=== PATIENT | male | born 1975 | race African-American/Black ===

== ENCOUNTER 2016-11-04 12:16 | Emergency (ER) | payer SELFPAY ==
[~2016-11-04] VITALS: Ht 167.6 cm; Wt 60.0 kg
[~2016-11-04 12:16] MED LIST: DICL75 PO; Z.0.NO CURRENT MEDS
[2016-11-04 12:21] VITALS: BP 138/78; PULSE 59; RESP 16; TEMP 98.1; O2SAT 98
--- NOTE | 2016-11-04 12:38 | PD ---
HPI Chief Complaint: Pain: Acute or Chronic Time Seen by Provider: 12:35 Travel History International Travel<30 days: No Contact w/Intl Traveler<30days: No Traveled to known affect area: No History of Present Illness HPI 41-year-old male presents to the emergency Department with complaint of right shoulder pain 1 week. Denies injury, strain. Says there is a shocking pain that occasionally radiates from his shoulder to his fingers. Pain is worse with movement and palpation. Denies fever, chills, nausea, vomiting. Denies paresthesias, loss of sensation, decreased range of motion, decreased strength to the affected extremity. Has taken Tylenol with no relief of pain. Has not had any other treatments to alleviate his symptoms. No known relieving factors. Denies allergies. No other modifying factors or associated signs and symptoms. PFSH Past Medical History Asthma: Yes Blood Disorders: No Anxiety: Yes Cancer: No Cardiovascular Problems: No Chemotherapy: No Diminished Hearing: No Endocrine: No Gastrointestinal Disorders: No GERD: Yes Genitourinary: No Immune Disorder: No Musculoskeletal: No Neurologic: No Psychiatric: No Reproductive: No Respiratory: Yes (BRONCHITIS) Radiation Therapy: No Ulcer: Yes (GASTRIC) Past Surgical History AICD: No Arteriovenous Shunt: No Eye Surgery: Yes Insulin Pump: No Joint Replacement: No Pacemaker: No Other Surgery: No Social History Alcohol Use: Yes (OCCASIONALLY) Tobacco Use: Yes (1 PPD) Substance Use: Yes (MARIJUANA ) Allergies-Medications (Allergen,Severity, Reaction): Coded Allergies: No Known Allergies (Verified , 11/04/16) Reported Meds & Prescriptions Reported Meds & Active Scripts Active Robaxin (Methocarbamol) 500 Mg Tab 500 Mg PO QID PRN Ibuprofen 800 Mg Tab 800 Mg PO Q6HR PRN Medrol Dosepak (Methylprednisolone) 4 Mg Dspk 4 Mg PO DIRECTED Per Pharmacist direction Review of Systems Except as stated in HPI: all other systems reviewed are Neg Physical Exam Narrative GENERAL: Well-nourished, well-developed male patient, in no acute distress; afebrile SKIN: Warm and dry. HEAD: Atraumatic. Normocephalic. EYES: Pupils equal and round. No scleral icterus. No injection or drainage. ENT: Mucosa pink and moist. Airway patent. NECK: Supple. Trachea midline. Moving freely. No midline point tenderness on palpation of the cervical spine or reproducible tenderness over the trapezius muscle. CARDIOVASCULAR: Regular rate. RESPIRATORY: No accessory muscle use. GASTROINTESTINAL: Flat. MUSCULOSKELETAL: Right shoulder with full range of motion and greater than 45 abduction; tenderness at the acromioclavicular joint; no obvious deformity; without erythema, edema; shoulders equal. Right upper extremity supple and non- tense with 2+ radial pulses and sensory intact without erythema or edema. 5/5 strength. Internet Marketing Strategist strength equal. No obvious deformities. No clubbing. No cyanosis. No edema. NEUROLOGICAL: Awake and alert. Oriented 3. No obvious cranial nerve deficits. Motor grossly within normal limits. Normal speech. PSYCHIATRIC: Appropriate mood and affect; insight and judgment normal. Data Data Last Documented VS Vital Signs Date Time Temp Pulse Resp B/P Pulse Ox O2 Delivery O2 Flow Rate FiO2 11/04/16 12:21 98.1 59 16 138/78 98 Orders Sling Cradle Arm (11/04/16 ) Ibuprofen (Motrin) (11/04/16 12:45) MDM Medical Decision Making Medical Screen Exam Complete: Yes Emergency Medical Condition: Yes Medical Record Reviewed: Yes Differential Diagnosis Rotator cuff tear, arthritis, cervical radiculopathy, nerve impingement Narrative Course 41-year-old male with right shoulder pain 1 week. No injury or strain. Right shoulder is with full range of motion; joint is stable. Right upper extremity supple and non-tense with 2+ radial pulse and sensory intact and without erythema or edema. I do not suspect joint separation, dislocation, fracture and feel that imaging is not necessary at this time. Ibuprofen administered in the ER. Arm sling provided for support. Medrol Dosepak, ibuprofen, Robaxin prescribed for home. Instructed patient to follow-up with orthopedics as needed. Patient is medically cleared and stable for discharge. Discussed reasons to return to the emergency department. Instructed patient to follow up with primary care provider. Patient agrees with treatment plan. The patients vital signs are stable and the patient is stable for outpatient follow-up and treatment. Patient discharged home, stable and in no acute distress. Diagnosis Primary Impression: Shoulder pain, right Qualified Code: M25.511 - Right shoulder pain, unspecified chronicity Referrals: Orthopedist Primary Care Physician Patient Instructions: General Instructions, Shoulder Pain (ED) Additional Instructions: Tylenol or ibuprofen as needed and as directed to reduce pain and inflammation Rest, ice, and compress extremity to decrease pain and inflammation Arm sling for support as needed; only use arm sling occasionally; continue to move your arm to avoid frozen shoulder Avoid aggravating activity; increase activity as tolerated Follow-up with primary care provider Follow-up with orthopedics as needed Return to the emergency department immediately with worsening symptoms Med/Other Pt SpecificInfo: Prescription(s) given Scripts Methocarbamol (Robaxin)500 Mg [id number] Mg PO QID PRN (MUSCLE SPASM) #30 TAB Ref 0 Prov:Clarisa Luke 11/04/16 Ibuprofen 800 Mg [id number] Mg PO Q6HR PRN (PAIN) #30 TAB Ref 0 Prov:Clarisa Luke 11/04/16 Methylprednisolone Dosepak (Medrol Dosepak)4 Mg Dspk4 Mg PO DIRECTED #1 DSPK Ref 0 Per Pharmacist direction Prov:Clarisa Luke 11/04/16 Disposition: 01 DISCHARGE HOME Condition: Stable Clarisa Luke Nov 04, 2016 12:38
[2016-11-04] MEDS ORDERED: ROBA500T PO (12:42)
[2016-11-04] MEDS ORDERED: IBUP800T23 PO (12:42)
[2016-11-04] MEDS ORDERED: MEDR4PAK PO (12:42)
[2016-11-04] MEDS ORDERED: IBUPROFEN 800 MG TAB PO ONE (12:45)
== END 2016-11-04 12:55 | disposition home or self-care (01) ==
LOC: NEPB 12:16
DX: M25.511 Pain in right shoulder (principal)
CPT/HCPCS: 99283

== ENCOUNTER 2017-04-18 18:51 | Emergency (ER) | payer SELFPAY ==
[~2017-04-18] VITALS: Ht 167.6 cm; Wt 61.8 kg
[~2017-04-18 18:51] MED LIST changes: -DICL75 PO; +IBUP800T23 PO; +MEDR4PAK PO; +ROBA500T PO; -Z.0.NO CURRENT MEDS
[2017-04-18 18:53] VITALS: BP 148/85; PULSE 84; RESP 17; TEMP 98.2; O2SAT 99
[2017-04-18] MEDS ORDERED: VENTAER INH (19:20)
[2017-04-18 21:25] LABS: BLOOD, URINE NEG (NEG); COMMENT (UR) CULT NOT INDICATED; CULTURE IF INDICATED CULT NOT INDICATED; GLUCOSE,URINE NEG (NEG); KETONE, URINE NEG (NEG); MUCUS URINE FEW /lpf (OCC); NITRITE,URINE NEG (NEG); URINE COLOR YELLOW (YELLW/STRAW)
--- NOTE | 2017-04-18 22:46 | PD ---
HPI Chief Complaint: Complaint Time Seen by Provider: 20:39 Travel History International Travel<30 days: No Contact w/Intl Traveler<30days: No Traveled to known affect area: No History of Present Illness HPI This is a 42-year-old male about 1 day of swelling about the foreskin of the penis. He reports rough intercourse preceding the swelling. Timing constant. He has no pain with urination or difficulty urinating. No abnormal discharge. No testicular pain. The swelling about the penis itself is not painful for him to the patient. PFSH Past Medical History Asthma: Yes Blood Disorders: No Anxiety: Yes Cancer: No Cardiovascular Problems: No Chemotherapy: No Diminished Hearing: No Endocrine: No Gastrointestinal Disorders: No GERD: Yes Genitourinary: No Immune Disorder: No Musculoskeletal: No Neurologic: No Psychiatric: No Reproductive: No Respiratory: Yes (BRONCHITIS) Radiation Therapy: No Ulcer: Yes (GASTRIC) Tetanus Vaccination: Unknown Past Surgical History AICD: No Arteriovenous Shunt: No Eye Surgery: Yes Insulin Pump: No Joint Replacement: No Pacemaker: No Other Surgery: No Social History Alcohol Use: Yes (OCCASIONALLY) Tobacco Use: Yes (1 PPD) Substance Use: Yes (MARIJUANA IN PAST ) Allergies-Medications (Allergen,Severity, Reaction): Coded Allergies: No Known Allergies (Verified , 04/18/17) Reported Meds & Prescriptions Reported Meds & Active Scripts Active Reported Ventolin Hfa 18 GM Inh (Albuterol Sulfate) 90 Mcg/Act Aer 2 Puff INH Q4H PRN Review of Systems Except as stated in HPI: all other systems reviewed are Neg Physical Exam Narrative GENERAL: 42 yo M pleasant well-nourished without PENIS: There is an edematous ring just proximal to the levine of the glands about 1 cm or so in length with erythema however no tenderness or discharge. The glans is nontender. Testicular exam is unremarkable SKIN: Focused skin assessment warm/dry. HEAD: Atraumatic. Normocephalic. EYES: Pupils equal and round. No scleral icterus. No injection or drainage. ENT: No nasal bleeding or discharge. Mucous membranes pink and moist. NECK: Trachea midline. No JVD. Data Data Last Documented VS Vital Signs Date Time Temp Pulse Resp B/P Pulse Ox O2 Delivery O2 Flow Rate FiO2 04/18/17 18:53 98.2 84 17 148/85 99 Vital signs reviewed Orders Urinalysis - C+S If Indicated (6/20/17 20:54) Gc And Chlamydia Pcr (04/18/17 20:54) Labs Laboratory Tests Test 04/18/17 21:10 Urine Color YELLOW Urine Turbidity CLEAR Urine pH 6.0 Urine Specific [place] 1.027 Urine Protein NEG mg/dL Urine Glucose (UA) NEG mg/dL Urine Ketones NEG mg/dL Urine Occult Blood NEG Urine Nitrite NEG Urine Bilirubin NEG Urine Urobilinogen LESS THAN 2.0 MG/DL Urine Leukocyte Esterase NEG Urine RBC 2 /hpf Urine WBC 1 /hpf Urine Mucus FEW /lpf Microscopic Urinalysis Comment CULT NOT INDICATED MDM Medical Decision Making Medical Screen Exam Complete: Yes Emergency Medical Condition: Yes Medical Record Reviewed: Yes Differential Diagnosis Phimosis, paraphimosis, a UTI, STD Narrative Course Ice was applied and the paraphimosis was reduced without difficulty. Procedures Procedure Narrative Reduction of paraphimosis was applied with traction counter traction technique after application of ice. Patient tolerated well. Diagnosis Primary Impression: Paraphimosis Referrals: Julian Junior DO 2 days Additional Instructions: You have a choice when it comes to health care, and we are glad that you chose [facility]. Hopefully, we have met your expectations on today's visit. You are welcome to return to [facility] at any time, as we are committed to meeting the health care needs of our community. Med/Other Pt SpecificInfo: No Change to Meds Disposition: 01 DISCHARGE HOME Condition: Sarmad Simms MD Apr 18, 2017 22:46
[2017-04-18 23:08] VITALS: BP 142/70; PULSE 80; RESP 18; O2SAT 99
[2017-04-18 23:21] LABS: CHLAMYDIA PCR NOT DETECTED (NOT DETECT); NEISSERIA PCR NOT DETECTED (NOT DETECT)
== END 2017-04-18 23:09 | disposition home or self-care (01) ==
LOC: NEPD 18:51
DX: N47.2 Paraphimosis (principal); F17.200 Nicotine dependence, unspecified, uncomplicated; Z87.09 Personal history of other diseases of the respiratory system; Z86.59 Personal history of other mental and behavioral disorders; Z87.19 Personal history of other diseases of the digestive system
CPT/HCPCS: 81001; 87491; 87591; 99283

== ENCOUNTER 2017-08-08 18:24 | Emergency (ER) | payer SELFPAY ==
[~2017-08-08] VITALS: Ht 167.6 cm; Wt 65.0 kg
[~2017-08-08 18:24] MED LIST changes: -IBUP800T23 PO; -MEDR4PAK PO; -ROBA500T PO; +VENTAER INH
[2017-08-08 18:26] VITALS: BP 118/58; PULSE 80; RESP 14; TEMP 98.9; O2SAT 95
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
[2017-08-08 20:04] VITALS: BP 160/77; PULSE 51; RESP 18; O2SAT 99
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
[2017-08-08] MEDS ORDERED: ONDANSETRON ODT 4 MG TAB PO ONE (20:15)
[2017-08-08] MEDS ORDERED: ACETAMINOPHEN 325 MG TAB PO ONE (20:15)
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
--- NOTE | 2017-08-08 21:31 | RADRPT ---
EXAM DATE/TIME: 08/08/2017 21:07 [facility] COMPARISON: No previous studies available for comparison. INDICATIONS : Chest pain. MEDICAL HISTORY : None. SURGICAL HISTORY : None. ENCOUNTER: Initial ACUITY: 1 day PAIN SCORE: 9/10 LOCATION: middle chest. FINDINGS: A single view of the chest demonstrates the lungs to be symmetrically aerated without evidence of mas s, infiltrate or effusion. There appears to be a tiny granuloma in the peripheral left lower lung. T he cardiomediastinal contours are unremarkable. Osseous structures are intact. CONCLUSION: No acute disease. Didier Pepe MD on August 08, 2017 at 21:29 Board Certified Radiologist. This report was verified electronically.
== END 2017-08-08 21:50 | disposition home or self-care (01) ==
LOC: NEPE 18:24
DX: S09.90XA Unspecified injury of head, initial encounter (principal); F17.210 Nicotine dependence, cigarettes, uncomplicated; Y04.2XXA Assault by strike against or bumped into by another person, initial encounter
CPT/HCPCS: 70450; 70486; 71010

== ENCOUNTER 2017-09-06 22:00 | Emergency (ER) | payer SELFPAY ==
[~2017-09-06] VITALS: Ht 167.6 cm; Wt 63.6 kg
[2017-09-06 22:02] VITALS: BP 159/89; PULSE 93; RESP 18; TEMP 99.3; O2SAT 100
--- NOTE | 2017-09-06 22:35 | RADRPT ---
EXAM DATE/TIME: 09/06/2017 22:16 [facility] COMPARISON: No previous studies available for comparison. INDICATIONS : Cough, congestion, and shortness of breath. MEDICAL HISTORY : None. SURGICAL HISTORY : None. ENCOUNTER: Initial ACUITY: 3 days PAIN SCORE: 3/10 LOCATION: chest FINDINGS: PA and lateral views of the chest demonstrate the lungs to be symmetrically aerated without evidence of mass, infiltrate or effusion. The cardiomediastinal contours are unremarkable. Osseous structure s are intact. CONCLUSION: No acute disease. Vernon Mancilla Jr., MD on September 06, 2017 at 22:33 Board Certified Radiologist. This report was verified electronically.
[2017-09-06] MEDS: RESP: ALBUTEROL 2.5 MG/IPRATROPIUM 0.5 MG NEB (SCH) INH ×2 (22:56→22:57)
--- NOTE | 2017-09-06 22:57 | PD ---
HPI Chief Complaint: Respiratory Symptoms Time Seen by Provider: 22:52 Travel History International Travel<30 days: No Contact w/Intl Traveler<30days: No Traveled to known affect area: No History of Present Illness HPI Patient emergency Department complaining of cough and congestion ongoing for 3 days now. Patient states occasionally having productive cough. Patient states he has posttussive emesis is nonbloody and nonbilious. Patient has been using [id number] cold and flu medication with no relief of symptoms. Denies anything making it worse. Patient reports associated chills but denies any known fevers. Denies any chest pain, shortness of breath, abdominal pain, or headaches. Denies any known sick contacts. PFSH Past Medical History Asthma: Yes Blood Disorders: No Anxiety: Yes Cancer: No Cardiovascular Problems: No Chemotherapy: No Diminished Hearing: No Endocrine: No Gastrointestinal Disorders: No GERD: Yes Genitourinary: No Immune Disorder: No Musculoskeletal: No Neurologic: No Psychiatric: No Reproductive: No Respiratory: Yes (BRONCHITIS) Radiation Therapy: No Ulcer: Yes (GASTRIC) Past Surgical History AICD: No Arteriovenous Shunt: No Eye Surgery: Yes Insulin Pump: No Joint Replacement: No Pacemaker: No Other Surgery: No Social History Alcohol Use: Yes (OCCASIONALLY) Tobacco Use: Yes (1 PPD) Substance Use: Yes (MARIJUANA IN PAST ) Allergies-Medications (Allergen,Severity, Reaction): Coded Allergies: No Known Allergies (Verified , 08/08/17) Reported Meds & Prescriptions Reported Meds & Active Scripts Active Prednisone 20 Mg Tab 20 Mg PO BID 4 Days Ventolin Hfa 18 GM Inh (Albuterol Sulfate) 90 Mcg/Act Aer 2 Puff INH Q4H PRN Review of Systems Except as stated in HPI: all other systems reviewed are Neg Physical Exam Narrative GENERAL: Well-developed, well nourished, in no acute distress, and non-ill appearing. SKIN: Focused skin assessment warm and dry. HEAD: Atraumatic. Normocephalic. EYES: Pupils equal and round. EOMI. No scleral icterus. No injection or drainage. ENT: No nasal bleeding or discharge. Mucous membranes pink and moist. NECK: Trachea midline. Supple. No nuclear rigidity. CARDIOVASCULAR: Regular rate and rhythm. No murmur appreciated. RESPIRATORY: No accessory muscle use. No respiratory distress. Clear to auscultation. Breath sounds equal bilaterally. Dry hacking cough noted on exam. MUSCULOSKELETAL: No obvious deformities. No clubbing. No cyanosis. No edema. Full range of motion. NEUROLOGICAL: Awake and alert. No obvious cranial nerve deficits. Motor grossly within normal limits. Normal speech. PSYCHIATRIC: Appropriate mood and affect; insight and judgment normal. Data Data Last Documented VS Vital Signs Date Time Temp Pulse Resp B/P (MAP) Pulse Ox O2 Delivery O2 Flow Rate FiO2 09/06/17 23:27 09/06/17 22:02 99.3 93 18 100 Room Air Orders Orders Chest, Pa & Lat (09/06/17 ) Albuterol-Ipratropium Neb (Duoneb Neb) (09/06/17 22:45) Ed Discharge Order (09/06/17 23:14) [facility] Medical Decision Making Medical Screen Exam Complete: Yes Emergency Medical Condition: Yes Interpretation(s) Last Impressions Chest X-Ray 09/06/17 0000 Signed Impressions: Service Date/Time: Wednesday, September 06, 2017 22:16 - CONCLUSION: No acute disease. Vernon Mancilla Jr., MD Differential Diagnosis Pneumonia, bronchitis, upper respiratory infection, COPD exacerbation, influenza , other Narrative Course Patients symptom complex of cough and congestion is consistent with viral URI. The patient is non-ill appearing and is in no respiratory distress and comfortable. The patient moves air well and oxygen saturations are normal. There is no clinical or radiological evidence to suggest pneumonia at this time. Plan of care and management were discussed with the patient who agreed with plan. The patient was instructed to follow up with their physician and instructed to return if worsens, progressively worsening shortness of breath or difficulty breathing, persistent fever, chest pains or discomfort, inability to keep medication or fluids down with or without vomiting, or as needed. Patient in no obvious distress upon re-evaluation. All pertinent Radiology result(s) discussed with patient/family. Patient was asked if they wanted to speak to my attending, which the patient did not wish to do at this time. Any questions/concerns in reference to patient diagnosis/condition discussed and clarified prior to patient's discharge. Reinforced sheer importance of close follow up with patient's primary physician or primary care clinic. Instructed patient to return to ED immediately, if symptoms return/worsen. Patient showed understanding of above instructions. Further instructions and recommendations were detailed in discharge paperwork. Patient ambulated without difficulty out of ED at discharge. Diagnosis Primary Impression: Upper respiratory infection Qualified Codes: J06.9 - Acute upper respiratory infection, unspecified Referrals: [facility] Patient Instructions: General Instructions, Upper Respiratory Infection (ED) Additional Instructions: Follow-up with your primary care physician in 5-7 days for reevaluation. Take all medication as prescribed. Return to the emergency department if symptoms get worse. Med/Other Pt SpecificInfo: Prescription(s) given Scripts Prednisone (Prednisone) 20 Mg Tab 20 MG PO BID for 4 Days, #8 TAB 0 Refills Prov: Ramya Oliva DO 09/06/17 Albuterol 18 GM Inh (Ventolin Hfa 18 GM Inh) 90 Mcg/Act Aer 2 PUFF INH Q4H Y for COUGH, #1 INHALER 0 Refills Prov: Ramya Oliva DO 09/06/17 Disposition: 01 DISCHARGE HOME Condition: Stable Jhon Villegas Sep 06, 2017 22:57
[2017-09-06] MEDS ORDERED: PRED20 PO (23:12)
[2017-09-06] MEDS ORDERED: VENTAER INH (23:12)
== END 2017-09-06 23:27 | disposition home or self-care (01) ==
LOC: NEPK 22:00
DX: J06.9 Acute upper respiratory infection, unspecified (principal); J45.909 Unspecified asthma, uncomplicated; F17.210 Nicotine dependence, cigarettes, uncomplicated
CPT/HCPCS: 71020; 94640; 94664; 99284